=== PATIENT | female | born 1960 | race Caucasian/White ===

== ENCOUNTER → 2017-07-07 | Emergency (ER) ==
[2017-07-07 12:58] VITALS: BMI 18.7
== END ==
LOC: ED 12:30
DX: M54.9 Dorsalgia, unspecified (principal)

== ENCOUNTER 2017-07-13 12:24 | Emergency (ER) | payer OTHER ==
[2017-07-13 12:24] VITALS: BMI 18.7
[2017-07-13 12:41] VITALS: BP 111/72; TEMP 98.9
--- NOTE | 2017-07-13 12:58 | ED.PDOC ---
General ED Provider: Dr. BEATRIZ GOEL Chief Complaint: Back Pain Stated Complaint: chronic pain out of meds Time Seen by Physician: 12:30 (encounter for med refill) Mode of Arrival: Walk-In Information Source: Patient Exam Limitations: No limitations Nursing and Triage Documentation Reviewed and Agree: Yes (negative new injury chronic issue) Musculoskeletal Complaint Exam - Back Pain Complaint/Exam Mechanism of Injury: Reports: No known trauma Onset/Duration: chronic Symptoms Are: Still present Timing: Intermittent Episodes Lasting: Weeks Initial Severity: Moderate Current Severity: Moderate Character: Reports: Aching Aggravating: Reports: Movements Alleviating: Reports: Rest Associated Signs and Symptoms: Denies: Swelling, Redness, Bruising, Fever, Weakness, Numbness, Tingling, Abdominal pain, Flank pain, Bladder incontinence, Bowel incontinence, Weight loss, Pain with weight bearing Related History: Reports: Similar episode AAA Risk Factors: Reports: None Cauda Equina Risk Factors: Reports: None Epidural Abcess Risk Factors: Reports: None Related Surgical History: Reports: None Focal Tenderness: No Paraspinal Muscle Tenderness: No Paraspinal Muscle Spasm: No Scoliosis: No Lordosis: No Kyphosis: No SLR Test: Right Negative, Left Negative Hip Motion Testing Pain: Right Negative, Left Negative Focal Weakness: Present: None Gait: Present: Normal Review of Systems - Review Of Systems Constitutional: Reports: No symptoms Eyes: Reports: No symptoms Ears, Nose, Mouth, Throat: Reports: No symptoms Respiratory: Reports: No symptoms Cardiac: Reports: No symptoms GI: Reports: No symptoms : Reports: No symptoms Musculoskeletal: Reports: Back pain Skin: Reports: No symptoms Neurological: Reports: No symptoms Endocrine: Reports: No symptoms Hematologic/Lymphatic: Reports: No symptoms All Other Systems: Reviewed and Negative Past Medical History - Past Medical History Endocrine: Reports: Unknown Cardiovascular: Reports: Unknown Respiratory: Reports: Unknown Hematological: Reports: Unknown Gastrointestinal: Reports: Unknown Genitourinary: Reports: Unknown Neuro/Psych: Reports: Other Musculoskeletal: Reports: Back Pain Cancer: Reports: Unknown Last Menstrual Period: hysterectomy - Surgical History General Surgical History: Reports: Hysterectomy - Family History Family History: Reports: Unknown - Social History Smoking Status: Current every day smoker, Light tobacco smoker Hx Substance Use: No Alcohol Screening: None Physical Exam - Physical Exam Appearance: Well-appearing, No pain distress, Well-nourished Eyes: JOHNNY, EOMI, Conjunctiva clear ENT: Ears normal, Nose normal, Oropharynx normal Respiratory: Airway patent, Breath sounds clear, Breath sounds equal, Respirations nonlabored Cardiovascular: RRR, Pulses normal, No rub, No murmur GI/: Soft, Nontender, No masses, Bowel sounds normal, No Organomegaly Musculoskeletal: Normal strength, ROM intact, No edema, No calf tenderness Skin: Warm, Dry, Normal color Neurological: Sensation intact, Motor intact, Reflexes intact, Cranial nerves intact, Alert, Oriented Psychiatric: Affect appropriate, Mood appropriate Critical Care Note - Critical Care Note Total Time (mins): 0 Course - Course Vital Signs: Temp Pulse Resp BP Pulse Ox 07/13/17 12:30 98.9 F 98 H 20 111/72 94 L Departure - Departure Time of Disposition: 12:57 (demond present at all times ) Disposition: HOME SELF-CARE Discharge Problem: Backache Instructions: Back Pain (ED) Condition: Good Pt referred to PMD for follow-up: Yes Additional Instructions: Please call your Family Physician as soon as possible to schedule a follow-up appointment. Allergies/Adverse Reactions: Allergies Iodinated Contrast- Oral and IV Dye Adverse Reaction (Verified 07/13/17 12:42) Home Medications: Ambulatory Orders Lorazepam 1 mg PO DAILY 07/07/17 Mirtazapine [Remeron] 15 mg PO DAILY 07/07/17 Pregabalin [Lyrica] 100 mg PO DAILY 07/07/17 Temazepam 30 mg PO DAILY 07/07/17 Disposition Discussed With: Patient
== END 2017-07-13 13:08 | disposition home or self-care (01) ==
LOC: ED 12:24
DX: M54.9 Dorsalgia, unspecified (principal); G89.29 Other chronic pain
CPT/HCPCS: 99283

== ENCOUNTER 2017-08-28 16:54 | Outpatient (CLI) ==
[2017-08-28 17:01] LABS: BASOPHILS % (AUTO) 0.4 % (0.0-3.0); EOSINOPHILS # (AUTO) 0.1 K/ul (0.0-0.7); EOSINOPHILS % (AUTO) 0.8 % (0.0-7.0); HEMATOCRIT 50.7 % (37.0-47.0); HEMOGLOBIN 17.4 g/dl (12.0-16.0); IMMATURE GRANULOCYTE % (AUTO) 0.3 % (0.0-5.0); LYMPHOCYTES % (AUTO) 40.2 (10.0-50.0); MEAN CORPUSCULAR HEMOGLOBIN 29.9 pg (27.0-31.0); MEAN CORPUSCULAR HGB CONC 34.3 (31.8-35.4); MEAN CORPUSCULAR VOLUME 87.1 fl (81.0-99.0); MONOCYTES # (AUTO) 0.5 K/uL (0.4-2.0); MONOCYTES % (AUTO) 6.1 (0-10); NEUTROPHILS # (AUTO) 3.9 K/ul (2.0-6.9); NEUTROPHILS % (AUTO) 52.2; PLATELET COUNT 263 10^3/uL (140-440); RED BLOOD COUNT 5.82 10^6/ul (4.20-5.40); WHITE BLOOD COUNT 7.54 K/ul (4.6-10.2)
[2017-08-28 17:33] LABS: ALBUMIN 4.5 g/dL (3.4-5.0); ALBUMIN/GLOBULIN RATIO 1.18; ANION GAP 16.1; BILIRUBIN,TOTAL 0.59 mg/dL (0.00-1.20); BUN/CREATININE RATIO 11.82; CALCIUM 10.5 mg/dL (8.2-10.2); CHOL/HDL RATIO 2.9 (4.5-5.5); CREATININE 0.93 mg/dL (0.60-1.30); POTASSIUM 4.1 mmol/L (3.5-5.10); TOTAL PROTEIN 8.3 g/dL (6.4-8.2)
== END 2017-08-28 16:55 | disposition home or self-care (01) ==
LOC: LAB 16:54
PROVIDERS: ATTEND Emergency Medicine
DX: M47.24 Other spondylosis with radiculopathy, thoracic region (principal); M47.26 Other spondylosis with radiculopathy, lumbar region; N95.9 Unspecified menopausal and perimenopausal disorder; E78.5 Hyperlipidemia, unspecified
CPT/HCPCS: 36415; 80053; 80061; 84443; 85025

== ENCOUNTER 2017-11-23 13:56 | Outpatient (CLI) ==
--- NOTE | 2017-11-26 08:51 | MAMMO ---
EXAM: Bilateral digital screening mammogram (2-D and 3-D) Comparison: Bilateral mammogram 01/10/2016 Findings: MLO and CC views of bilateral breasts demonstrate heterogeneously dense breast parenchyma which can obscure small lesions. CAD was reviewed by the radiologist. Tomosynthesis was performed. There are no dominant masses, no suspicious microcalcifications and no architectural distortions Impression: Stable negative mammogram. Recommend followup routine screening mammography in 1 year. BIRADS 1
== END 2017-11-23 13:57 | disposition home or self-care (01) ==
LOC: RAD 13:56
PROVIDERS: ATTEND Emergency Medicine
DX: Z12.31 Encounter for screening mammogram for malignant neoplasm of breast (principal)
CPT/HCPCS: 77067

== ENCOUNTER 2018-03-27 12:31 | Outpatient (CLI) | END 2018-03-27 12:32 | disposition home or self-care (01) | LOC: RHC-LAB 12:31 | PROVIDERS: ATTEND Emergency Medicine | DX: F51.01 Primary insomnia (principal); N95.9 Unspecified menopausal and perimenopausal disorder; E78.5 Hyperlipidemia, unspecified; F41.1 Generalized anxiety disorder | CPT/HCPCS: 36415; 80053; 80061; 84443; 85025 ==

== ENCOUNTER 2018-08-22 11:01 | Outpatient (CLI) | payer OTHER ==
--- NOTE | 2018-08-22 14:24 | CT ---
EXAM: CT pelvis without contrast HISTORY: Sacral coccygeal disorders, not elsewhere classified COMPARISON: None TECHNIQUE: CT pelvis performed without intravenous contrast. Coronal and sagittal reformatted image s obtained. FINDINGS: Surgical clips in the pelvis. No pelvic lymphadenopathy identified. Atherosclerosis. Ut erus not clearly visualized and may be surgically absent. Sacroiliac joints intact with mild degener ative change. No fracture or dislocation. Mild osteoarthritis of the hips with small osteophyte for mation and mild joint space narrowing. Degenerative change in the spine that is incompletely imaged. Slight asymmetry at the pubic symphysis, possibly due to patient positioning. Mild degenerative juan carlos nge of the pubic symphysis. IMPRESSION: 1. Sacroiliac joints intact with mild degenerative change. 2. Mild osteoarthritis of the hips. 3. Slight asymmetry at the pubic symphysis, possibly due to patient positioning. Mild degenerative change of the pubic symphysis. 4. Degenerative change in the spine, incompletely imaged.
== END 2018-08-22 11:02 | disposition home or self-care (01) ==
LOC: RAD 11:01
PROVIDERS: ATTEND Nurse Practitioner Family
DX: M53.3 Sacrococcygeal disorders, not elsewhere classified (principal); M47.26 Other spondylosis with radiculopathy, lumbar region; R63.4 Abnormal weight loss; J45.40 Moderate persistent asthma, uncomplicated; F41.1 Generalized anxiety disorder
CPT/HCPCS: 36415; 80053; 84443; 85025

== ENCOUNTER 2019-01-01 10:46 | Emergency (ER) | payer OTHER ==
[2019-01-01 10:51] VITALS: BP 149/73; TEMP 97; BMI 17.7
--- NOTE | 2019-01-01 13:55 | ED.PDOC ---
General ED Provider: Dr. PAT LUONG Chief Complaint: Hypertension Stated Complaint: Blood pressure is 112/80 during this visit.She doctors locally [place] 2 mo.No. ongoing oroblems were enumerated .She smokes and has anxiety and is concerned about BP.=HTN. Time Seen by Physician: 16:06 Mode of Arrival: Walk-In Information Source: Patient Exam Limitations: No limitations Primary Care Provider: MAURA CHRISTIAN Nursing and Triage Documentation Reviewed and Agree: Yes Does patient meet sepsis criteria?: No System Inflammatory Response Syndrome: Not Applicable Sepsis Protocol: For patient's 13 years and over: Temp is 96.8 and below OR 101 and greater Pulse >90 BPM Resp >20/minute Acutely Altered Mental Status Are patient's symptoms suggestive of a new infection, such as: -Pneumonia -Skin, Soft Tissue -Endocarditis -UTI -Bone, Joint Infection -Implantable Device -Acute Abdominal Infection -Wound Infection -Meningitis -Blood Stream Catheter Infection -Unknown Cardiovascular Complaint Exam - Hypertension Complaint/Exam Onset/Duration: no known but apparently occasional Symptoms Are: Resolved Timing: Intermittent Aggravating: Reports: Exertion Alleviating: Reports: Rest Associated Signs and Symptoms: Reports: Anxiety Related History: Reports: Other Related Surgical History: Reports: None Cardiac Risk Factors: Reports: Smoking Recent Change in Medications: No A/V Nicking: No Papilledema Present: No JVD Present: No Carotid Bruit Present: No Differential Diagnoses: Drug Withdrawal, Hypertensive Urgency, Hyperthyroidism Quality Indicator For Non-Traumatic Chest Pain/Syncope: EKG Performed Review of Systems - Review Of Systems Constitutional: Reports: Malaise, Weakness Eyes: Reports: No symptoms Ears, Nose, Mouth, Throat: Reports: No symptoms Respiratory: Reports: Wheezing Cardiac: Reports: Lightheadedness GI: Reports: No symptoms : Reports: No symptoms Musculoskeletal: Reports: No symptoms Neurological: Reports: No symptoms Endocrine: Reports: No symptoms Hematologic/Lymphatic: Reports: No symptoms All Other Systems: Reviewed and Negative Past Medical History - Past Medical History Endocrine: Reports: Unknown Cardiovascular: Reports: Unknown Respiratory: Reports: Unknown Hematological: Reports: Unknown Gastrointestinal: Reports: Unknown Genitourinary: Reports: Unknown Neuro/Psych: Reports: Other Musculoskeletal: Reports: Back Pain Cancer: Reports: Unknown Last Menstrual Period: n/a - Surgical History General Surgical History: Reports: Hysterectomy - Family History Family History: Reports: Unknown - Social History Smoking Status: Current every day smoker, Light tobacco smoker Hx Substance Use: No Alcohol Screening: None Physical Exam - Physical Exam Appearance: Ill-appearing, Thin Ill-appearing: Mild Pain Distress: None Eyes: JOHNNY ENT: Ears normal Respiratory: Airway patent Cardiovascular: RRR GI/: Soft Musculoskeletal: Normal strength Skin: Warm Neurological: Sensation intact Critical Care Note - Critical Care Note Total Time (mins): 0 Course - Course Hematology/Chemistry: 01/01/19 14:20 01/01/19 14:20 Orders, Labs, Meds: Lab Review 01/01/19 01/01/19 01/01/19 14:10 14:20 14:20 WBC 7.84 RBC 5.09 Hgb 15.3 Hct 45.9 MCV 90.2 MCH 30.1 MCHC 33.3 RDW Coeff of Grisel 12.1 Plt Count 284 Immature Gran % (Auto) 0.4 Neut % (Auto) 52.6 Lymph % (Auto) 39.8 Wilkes % (Auto) 6.0 Eos % (Auto) 0.8 Baso % (Auto) 0.4 Immature Gran # (Auto) 0.0 Neut # (Auto) 4.1 Lymph # (Auto) 3.1 Wilkes # (Auto) 0.5 Eos # (Auto) 0.1 Baso # (Auto) 0.0 Sodium 141.8 Potassium 3.82 Chloride 103.2 Carbon Dioxide 28.6 Anion Gap 13.82 BUN 18.5 H Creatinine 0.81 Estimated GFR (MDRD) 72.00 BUN/Creatinine Ratio 22.83 Glucose 82.8 Calcium 9.61 Total Bilirubin 0.67 AST 25.4 ALT 15.8 Alkaline Phosphatase 56.9 Total Protein 7.55 Albumin 4.85 Globulin 2.70 Albumin/Globulin Ratio 1.79 Urine Color Yellow Urine Clarity Clear Urine pH 5.5 Ur Specific [place] >=1.030 Urine Protein Negative Urine Glucose (UA) Negative Urine Ketones Negative Urine Blood Trace-intact Urine Nitrite Negative Urine Bilirubin Negative Urine Urobilinogen 0.2 Ur Leukocyte Esterase 1+ Urine Microscopic RBC 0-2 Urine Microscopic WBC 10-20 Ur Squamous Epith Cells Not present Urine Mucus 3+ Orders Category Date Time Status EKG-(ED ONLY) Stat CARDIO 01/01/19 14:02 Completed CBC W/ AUTO DIFF Stat LAB 01/01/19 14:20 Completed CMP [COMPREHENSIVE METABOLIC PANEL] Stat LAB 01/01/19 14:20 Completed UA [URINALYSIS C & S IF INDICATED] Stat LAB 01/01/19 14:10 Completed URINE CULTURE Stat LAB 01/01/19 14:10 Received Vital Signs: Temp Pulse Resp BP Pulse Ox 01/01/19 10:46 97.0 F L 92 H 20 149/73 H 95 SUZY Risk Score SUZY Risk Score: Risk Score Odds of by 30D 0 0.1 (0.1-0.2) 1 0.3 (0.2-0.3) 2 0.4 (0.3-0.5) 3 0.7 (0.6-0.9) 4 1.2 (1.0-1.5) 5 2.2 (1.9-2.6) 6 3.0 (2.5-3.6) 7 4.8 (3.8-6.1) Departure - Departure Time of Disposition: 16:04 Disposition: HOME SELF-CARE Discharge Problem: Anxiety about health Instructions: Social Anxiety Disorder (ED), Anxiety (ED) Condition: Good Pt referred to PMD for follow-up: No IPMP verified?: No Allergies/Adverse Reactions: Allergies Iodinated Contrast- Oral and IV Dye Adverse Reaction (Verified 01/01/19 10:51) Home Medications: Ambulatory Orders Oxycodone HCl [Oxycontin] 20 mg PO BID 10/25/17 Disposition Discussed With: Patient, Family
== END 2019-01-01 16:37 | disposition home or self-care (01) ==
LOC: ED 10:46
DX: F41.9 Anxiety disorder, unspecified (principal); F17.210 Nicotine dependence, cigarettes, uncomplicated
CPT/HCPCS: 36415; 80053; 81001; 85025; 87086; 93005; 93010; 99283